=== PATIENT | male | born 1965 | race Hispanic/Latino ===

== ENCOUNTER 2017-02-06 10:33 | Emergency (ER) | payer SELFPAY ==
[2017-02-06 10:56] VITALS: TEMP 98.4
[2017-02-06 11:00] VITALS: RESP 18
[2017-02-06] MEDS ORDERED: Sodium Chloride 0.9% 1,000 ML IV STA (11:07)
--- NOTE | 2017-02-06 11:14 | ED PDOC ---
Arrival/HPI - General Chief Complaint: GI Problem Time Seen by Provider: 02/06/17 10:59 Historian: Patient - History of Present Illness Narrative History of Present Illness (Text): 02/06/17 11:11 51 year old male with a past medical history that includes gastritis presents to the emergency department with nausea and vomiting for the past four days. Patient states symptoms began after he ate out four days ago,ate he at "rice from [employer] restaurant" Denies abdominal pain or fever diarhea 02/06/17 12:31 Time/Duration: < week Symptom Onset: Gradual Symptom Course: Unchanged Modifying Factors (Text): None Associated Symptoms (Text): None Past Medical History - Provider Review Nursing Documentation Reviewed: Yes - Infectious Disease Hx of Infectious Diseases: None - Gastrointestinal Hx Gastritis: Yes - Psychiatric Hx Substance Use: No - Surgical History Other/Comment: knee surgery - Anesthesia Hx Anesthesia: Yes Hx Anesthesia Reactions: No Hx Malignant Hyperthermia: No Family/Social History - Physician Review Nursing Documentation Reviewed: Yes Family/Social History: Unknown Family HX Smoking Status: Current Some Days Smoker Hx Alcohol Use: Yes Frequency of alcohol use: Socially Hx Substance Use: No Allergies/Home Meds Allergies/Adverse Reactions: Allergies No Known Allergies Allergy (Verified 02/06/17 10:56) Review of Systems - Physician Review All systems were reviewed & negative as marked: Yes - Review of Systems Constitutional: absent: Fevers Respiratory: absent: SOB Cardiovascular: absent: Chest Pain Gastrointestinal: Nausea, Vomiting. absent: Abdominal Pain Musculoskeletal: absent: Back Pain Neurological: absent: Dizziness Physical Exam Vital Signs Reviewed: Yes Vital Signs Temp Pulse Resp BP Pulse Ox 02/06/17 14:04 58 L 18 151/86 H 96 02/06/17 14:01 73 18 145/89 98 02/06/17 12:38 79 18 148/96 H 98 02/06/17 11:00 98.4 F 85 18 152/102 H 98 02/06/17 10:49 98.4 F 85 19 152/102 H 98 Temperature: Afebrile Blood Pressure: Hypertensive Pulse: Regular Respiratory Rate: Normal Appearance: Positive for: Well-Appearing, Non-Toxic, Comfortable Pain Distress: None Mental Status: Positive for: Alert and Oriented X 3 - Systems Exam Head: Present: Atraumatic, Normocephalic Pupils: Present: PERRL Extroacular Muscles: Present: EOMI Conjunctiva: Present: Normal Mouth: Present: Moist Mucous Membranes Neck: Present: Normal Range of Motion Respiratory/Chest: Present: Clear to Auscultation, Good Air Exchange. No: Respiratory Distress, Accessory Muscle Use Cardiovascular: Present: Regular Rate and Rhythm, Normal S1, S2. No: Murmurs Abdomen: Present: Normal Bowel Sounds. No: Tenderness, Distention, Peritoneal Signs Back: Present: Normal Inspection Upper Extremity: Present: Normal Inspection. No: Cyanosis, Edema Lower Extremity: Present: Normal Inspection. No: Edema Neurological: Present: GCS=15, CN II-XII Intact, Speech Normal Skin: Present: Warm, Dry, Normal Color. No: Rashes Psychiatric: Present: Alert, Oriented x 3, Normal Insight, Normal Concentration Medical Decision Making ED Course and Treatment: Impression: 51 year old male with a pmhx that includes gastritis presents with nausea and vomiting for the past four days. Differential Diagnosis include but are not limited to: Gastroenteritis vs gastritis less likely atypical cardiac Plan: -- EKG -- Zofran, IV fluids -- Labs -- Reassess and disposition EKG: Ordered, reviewed, and independently interpreted the EKG. Rate : 61 BPM Rhythm : NSR Interpretation : No ST/T wave changes Comparison : No previous EKG for comparison. Progress Notes: 02/06/17 12:31 pt reassesed. states symptoms mildly improved. requests more antiemetic. abd soft no ttp. labs unremarkable. 02/06/17 14:10 ct added as pt reported persistent symptoms. ct neg, labs unremarkable. pt now reports feels improved. advise outpt f/u and return precautions - Lab Interpretations Lab Results: 02/06/17 11:10 02/06/17 11:10 Lab Results 02/06/17 13:01: Urine Color Yellow, Urine Appearance Clear, Urine pH 6.5, Ur Specific [place] 1.020, Urine Protein Negative, Urine Glucose (UA) Negative, Urine Ketones 40 H, Urine Blood Trace-intact H, Urine Nitrate Negative, Urine Bilirubin Negative, Urine Urobilinogen 0.2, Ur Leukocyte Esterase Negative, Urine RBC 0 - 2, Urine WBC 0 - 2, Ur Epithelial Cells 0 - 2, Urine Bacteria Neg 02/06/17 11:10: WBC 10.9, RBC 5.72, Hgb 17.6, Hct 49.6, MCV 86.7, MCH 30.8, MCHC 35.5, RDW 13.2, Plt Count 365, MPV 9.8, Gran % 75.0 H, Lymph % (Auto) 16.5 L, [place] % (Auto) 7.4 H, Eos % (Auto) 0.7 L, Baso % (Auto) 0.4, Gran # 8.18 H, Lymph # 1.8, [place] # 0.8 H, Eos # 0.1, Baso # 0.04, PT 14.8 H, INR 1.37 H, APTT 29.4, Sodium 136, Potassium 4.1, Chloride 97 L, Carbon Dioxide 28, Anion Gap 15 , BUN 18, Creatinine 1.2, Est GFR ( Amer) > 60, Est GFR (Non-Af Amer) > 60, Random Glucose 122 H, Calcium 9.7, Total Bilirubin 1.6 H, AST 27, ALT 45, Alkaline Phosphatase 62, Lactate Dehydrogenase 313 L, Total Creatine Kinase 53, Troponin I < 0.01, Total Protein 8.1, Albumin 4.5, Globulin 3.6, Albumin/ Globulin Ratio 1.3, Lipase 30 - RAD Interpretation Narrative RAD Interpretations (Text): PROCEDURE: CT Abdomen and Pelvis with contrast [employer] Operator : Sonido Carmona MD HISTORY: nausea/vomiting COMPARISON: None. TECHNIQUE: Contrast dose: 100 cc of Omnipaque. This CT exam was performed using one or more of the following dose reduction techniques: Automated exposure control, adjustment of the mA and/or kV according to patient size, and/or use of iterative reconstruction technique. Helical scans were obtained from the abdomen and pelvis bulbi sagittal and coronal reconstructions. Radiation dose: Total exam DLP = 570 mGy-cm. FINDINGS: LOWER THORAX: Unremarkable. LIVER: Unremarkable. No gross lesion or ductal dilatation. GALLBLADDER AND BILE DUCTS: Unremarkable. PANCREAS: Unremarkable. No gross lesion or ductal dilatation. SPLEEN: Unremarkable. ADRENALS: Unremarkable. No mass. KIDNEYS AND URETERS: Unremarkable. No hydronephrosis. No solid mass. VASCULATURE: Unremarkable. No aortic aneurysm. BOWEL: Sigmoid colon diverticulosis.. No obstruction. No gross mural thickening. APPENDIX: Normal appendix. PERITONEUM: Unremarkable. No free fluid. No free air. LYMPH NODES: Unremarkable. No enlarged lymph nodes. BLADDER: Unremarkable. REPRODUCTIVE: Unremarkable. BONES: No acute fracture. OTHER FINDINGS: Status post left herniorrhaphy with surgical clips in place. IMPRESSION: Colonic diverticulosis. No acute pathology. Radiology Orders: 02/06/17 13:17 ABD & PELVIS IV CONTRAST ONLY [CT] Stat Hand Paster: Radiologist - EKG Interpretation Interpreted by ED Physician: Yes Type: 12 lead EKG - Medication Orders Current Medication Orders: Discontinued Medications Sodium Chloride (Sodium Chloride 0.9%) 1,000 mls @ 1,000 mls/hr IV .Q1H STA Stop: 02/06/17 12:06 Last Admin: 02/06/17 11:22 Dose: 1,000 MLS/HR eMAR Start Stop Document 02/06/17 11:22 EQ (Rec: 02/06/17 11:22 EQ [facility] [id number]) Intravenous Solution Start Date 02/06/17 Start Time 11:22 Iohexol (Omnipaque 350 100 Ml) Confirm Administered Dose 350 mg .ROUTE .STK-MED ONE Stop: 02/06/17 13:28 Ondansetron HCl (Zofran Inj) 4 mg IVP STAT STA Stop: 02/06/17 11:08 Last Admin: 02/06/17 11:22 Dose: 4 MG IVP Administration Document 02/06/17 11:22 EQ (Rec: 02/06/17 11:22 EQ [facility] [id number]) Charges for Administration # of IVP Administrations 1 Ondansetron HCl (Zofran Inj) 4 mg IVP STAT STA Stop: 02/06/17 12:01 Last Admin: 02/06/17 13:00 Dose: 4 MG IVP Administration Document 02/06/17 13:00 EQ (Rec: 02/06/17 13:24 EQ [facility] [id number]) Charges for Administration # of IVP Administrations 1 - Scribe Statement The provider has reviewed the documentation as recorded by the Bailee Lyons Provider Scribe Attestation: All medical record entries made by the Damasoibchetan were at my direction and personally dictated by me. I have reviewed the chart and agree that the record accurately reflects my personal performance of the history, physical exam, medical decision making, and the department course for this patient. I have also personally directed, reviewed, and agree with the discharge instructions and disposition. Disposition/Present on Arrival - Present on Arrival Any Indicators Present on Arrival: No History of DVT/PE: No History of Uncontrolled Diabetes: No Urinary Catheter: No History of Decub. Ulcer: No History Surgical Site Infection Following: None - Disposition Have Diagnosis and Disposition been Completed?: Yes Diagnosis: Vomiting Disposition: HOME/ ROUTINE Disposition Time: 14:10 Patient Problems: Current Active Problems Problem Status Diagnosed Vomiting Acute Condition: STABLE Discharge Instructions (ExitCare): Acute Nausea and Vomiting (ED) Additional Instructions: please follow up with specialist., return to er with worsening symptoms or concerns. Prescriptions: Ondansetron ODT [Zofran ODT] 4 mg PO Q8 PRN #10 odt PRN Reason: Nausea/Vomiting [facility] - Follow up with primary Vasquez Blanc MD [Staff Provider] - Follow up with primary
[2017-02-06 11:24] LABS: ADD MANUAL DIFF? NO
[2017-02-06 11:28] LABS: BASO # 0.04 K/mm3 (0.0-2.0); BASO % 0.4 % (0.0-3.0); EOS # 0.1 (0.0-0.7); EOS % 0.7 % (1.5-5.0); GRAN # 8.18 (1.4-6.5); HEMATOCRIT 49.6 % (42.0-52.0); LYMPH # 1.8 (1.2-3.4); LYMPH % 16.5 % (22.0-35.0); MEAN CELL VOLUME 86.7 fL (80.0-105.0); MEAN CORPUSCULAR HEMOGLOBIN 30.8 pg (25.0-35.0); MEAN CORPUSCULAR HGB CONC 35.5 g/dl (31.0-37.0); MEAN PLATELET VOLUME 9.8 fl (7.0-11.0); MONO # 0.8 (0.1-0.6); MONO % 7.4 % (1.0-6.0); PLATELET COUNT 365 10^3/uL (120.0-450.0); RED CELL DISTRIBUTION WIDTH 13.2 % (11.5-14.5); WHITE BLOOD COUNT 10.9 10^3/ul (4.5-11.0)
[2017-02-06 11:40] LABS: INR 1.37 (0.93-1.08); PARTIAL THROMBOPLASTIN TIME 29.4 Seconds (23.7-30.8)
[2017-02-06 11:44] LABS: ALB/GLOB RATIO 1.3 (1.1-1.8); ALKALINE PHOSPHATASE 62 U/L (38-133); ALT/SGPT 45 U/L (7-56); AST/SGOT 27 U/L (15-59); BILIRUBIN,TOTAL 1.6 mg/dL (0.2-1.3); BLOOD UREA NITROGEN 18 mg/dL (7-21); CALCIUM 9.7 mg/dL (8.4-10.5); CARBON DIOXIDE 28 mmol/L (21-33); CHLORIDE 97 mmol/L (98-107); GFR AFRICAN-AMERICAN > 60; GLUCOSE,RANDOM 122 mg/dL (70-110); LIPASE 30 U/L (23-300); POTASSIUM 4.1 mmol/L (3.6-5.0); SODIUM 136 mmol/L (132-148); TOTAL PROTEIN 8.1 g/dL (5.8-8.3)
[2017-02-06 12:03] LABS: TROPONIN I < 0.01 ng/mL
[2017-02-06] MEDS ORDERED: DiphenhydrAMINE 50 mg/ml Inj IVP STA (13:26)
[2017-02-06] MEDS ORDERED: Iohexol 350 MG/100 ML VIAL ONE (13:27)
[2017-02-06 13:31] LABS: PH,URINE 6.5 (4.7-8.0); URINE BILIRUBIN NEGATIVE (NEGATIVE); URINE BLOOD TRACE-INTACT (NEGATIVE); URINE GLUCOSE (UA) NEGATIVE (NEGATIVE); URINE KETONE 40 mg/dL (NEGATIVE); URINE LEUKOCYTE ESTERASE NEGATIVE Leu/uL (NEGATIVE); URINE PROTEIN NEGATIVE mg/dL (<30 mg/dL); URINE UROBILINOGEN 0.2 E.U./dL (<1 E.U./dL)
[2017-02-06 13:41] LABS: URINE APPEARANCE CLEAR (CLEAR); URINE COLOR YELLOW (YELLOW)
[2017-02-06 14:05] VITALS: BP 151/86; PULSE 58; O2SAT 96
--- NOTE | 2017-02-06 14:06 | CT ---
PROCEDURE: CT Abdomen and Pelvis with contrast HISTORY: nausea/vomiting COMPARISON: None. TECHNIQUE: Contrast dose: 100 cc of Omnipaque. This CT exam was performed using one or more of the following dose reduction techniques: Automated exposure control, adjustment of the mA and/or kV according to patient size, and/or use of iterative reconstruction technique. Helical scans were obtained from the abdomen and pelvis bulbi sagittal and coronal reconstructions. Radiation dose: Total exam DLP = 570 mGy-cm. FINDINGS: LOWER THORAX: Unremarkable. LIVER: Unremarkable. No gross lesion or ductal dilatation. GALLBLADDER AND BILE DUCTS: Unremarkable. PANCREAS: Unremarkable. No gross lesion or ductal dilatation. SPLEEN: Unremarkable. ADRENALS: Unremarkable. No mass. KIDNEYS AND URETERS: Unremarkable. No hydronephrosis. No solid mass. VASCULATURE: Unremarkable. No aortic aneurysm. BOWEL: Sigmoid colon diverticulosis.. No obstruction. No gross mural thickening. APPENDIX: Normal appendix. PERITONEUM: Unremarkable. No free fluid. No free air. LYMPH NODES: Unremarkable. No enlarged lymph nodes. BLADDER: Unremarkable. REPRODUCTIVE: Unremarkable. BONES: No acute fracture. OTHER FINDINGS: Status post left herniorrhaphy with surgical clips in place. IMPRESSION: Colonic diverticulosis. No acute pathology.
[2017-02-06 14:07] LABS: URINE BACTERIA NEG (NEG); URINE EPITHELIAL CELLS 0 - 2 /hpf (0-5); URINE RBC 0 - 2 /hpf (0-2); URINE WBC 0 - 2 /hpf (0-6)
--- NOTE | 2017-02-06 18:40 | CARD ---
APPROVED REPORT EKG Measurement Heart [id number] <Conclusion> Normal sinus rhythm Incomplete right bundle branch block Borderline ECG
== END 2017-02-06 14:46 | disposition home or self-care (01) ==
LOC: ED 10:33
DX: R11.10 Vomiting, unspecified (principal); F17.210 Nicotine dependence, cigarettes, uncomplicated
CPT/HCPCS: 74177; 80053; 81001; 82550; 83615; 83690; 84484; 85025; 85610; 85730; 93005; 96374; 96376; 99284; J2405; J7040; Q9967